=== PATIENT | female | born 1990 | race Caucasian/White ===

== ENCOUNTER 2022-01-20 14:08 | Emergency (ER) | payer OTHER ==
[~2022-01-20] VITALS: Ht 167.6 cm; Wt 72.7 kg
[2022-01-20 17:56] VITALS: BP 126/83
== END 2022-01-20 17:59 | disposition home or self-care (01) | DRG 316 ==
LOC: ED 14:08
DX: T80.1XXA Vascular complications following infusion, transfusion and therapeutic injection, initial encounter (principal); I80.8 Phlebitis and thrombophlebitis of other sites